=== PATIENT | female | born 1935 | race Caucasian/White ===

== ENCOUNTER → 2016-08-12 | Outpatient (CLI) | payer MEDICARE, OTHER ==
--- NOTE | 2016-08-12 10:04 | RAD ---
EXAM DESCRIPTION: Pelvis CLINICAL HISTORY: 81 years Female, PAIN IN LEFT HIP COMPARISON: None. FINDINGS: The bony pelvis is intact with an normal appearance of the SI joints and the visualized sacrum. There is mild left hip degenerative arthropathy and marginal osteophyte formation with slightly greater narrowing of the right hip joint particularly superomedially in the weightbearing portion. No fracture or dislocation is seen in the bones are mildly osteopenic. IMPRESSION: Mild degenerative changes of the hip, right worse than left. Electronically signed by: Osmel Persaud MD 08/12/2016 10:04 AM CDT
--- NOTE | 2016-08-12 10:04 | RAD ---
EXAM DESCRIPTION: Knee,Left Complete CLINICAL HISTORY: 81 years, Female, PAIN IN LEFT KNEE COMPARISON: None TECHNIQUE: Four views of the left knee FINDINGS: Severe degenerative changes with mild valgus deformity and marked joint space narrowing of the lateral compartment with [id number] appearance and subchondral sclerosis and marginal osteophytes is apparent with much less involvement of the medial joint compartment. Moderate patellofemoral degenerative arthropathy and small joint effusion is present. No fracture or dislocation or destructive process is seen. IMPRESSION: 1. Advanced degenerative changes, particularly involving the lateral joint compartment with small joint effusion and mild valgus deformity of the knee Electronically signed by: Osmel Persaud MD 08/12/2016 10:03 AM CDT
--- NOTE | 2016-08-12 10:07 | RAD ---
EXAM DESCRIPTION: Knee,Right Complete CLINICAL HISTORY: 81 years, Female, PAIN IN RIGHT KNEE COMPARISON: None TECHNIQUE: Four views of the right knee FINDINGS: Severe degenerative changes of the right knee, predominantly involving the lateral joint compartment with [id number]-qt-[id number] appearance and subchondral sclerosis and marginal osteophyte formation with much less involvement of the medial joint compartment and mild changes involving the patellofemoral articulation. A small joint effusion is suggested superiorly. The patella is abnormal with very subtle linear lucency evident on the lateral view and evident on the AP view through the distal femur consistent with an incomplete or nondisplaced patellar fracture. This appearance is not apparent on the opposite left knee. Fracture line on the lateral view involves the posterior articular surface just above the midpoint of the patella but does not appear to course through the anterior cortex. IMPRESSION: 1. Nondisplaced patellar fracture that may represent an incomplete fracture involving the articular surface posteriorly and best seen on the lateral view. 2. Severe knee degenerative arthropathy predominantly involving the lateral joint compartment with [id number] appearance and mild valgus deformity. Electronically signed by: Osmel Persaud MD 08/12/2016 10:07 AM CDT
== END | disposition home or self-care (01) ==
LOC: RAD 09:19
PROVIDERS: ATTEND Orthopaedic Surgery
DX: M25.561 Pain in right knee (principal); M25.551 Pain in right hip; M25.562 Pain in left knee; M25.552 Pain in left hip

== ENCOUNTER → 2016-09-27 | Outpatient (CLI) | payer MEDICARE, OTHER | LOC: GMAL 14:42 | PROVIDERS: ATTEND Orthopaedic Surgery | DX: Z01.818 Encounter for other preprocedural examination (principal); R30.0 Dysuria ==

== ENCOUNTER 2016-10-13 06:01 | Inpatient (IN) | payer MEDICARE, OTHER ==
--- NOTE | 2016-10-12 08:20 | HP ---
CHIEF COMPLAINT: Right knee pain. HISTORY OF PRESENT ILLNESS: Doris is a 81-year-old female with a long history of knee pain. She has had pain in the knee that keeps her from doing activities. She has had conservative measures and has now requested operative intervention secondary to failure of those measures. After discussing the risks, benefits and alternatives to operative therapy, the patient has given informed consent. PAST SURGICAL HISTORY: None. MEDICATIONS: Please see her most recent nursing notes for a full and updated list. ALLERGIES: NO KNOWN DRUG ALLERGIES. CODE STATUS: Full code. IMMUNIZATIONS: Up to date. SOCIAL HISTORY: The patient does not smoke or use any illicit drugs. She does drink on occasion. FAMILY HISTORY: None pertinent to today's complaint. REVIEW OF SYSTEMS: Negative except as indicated in the History of Present Illness. PHYSICAL EXAMINATION: VITAL SIGNS: Blood pressure 160/82. Pulse 71. Height 5'5". Weight 145. MENTAL STATUS: The patient is awake, alert, and is able to give a good history and participate in the physical. The patient is oriented to person, place and time. SKIN: Normal tone and turgor. HEENT: Normocephalic, atraumatic. Pupils equal, round and reactive. Mucosal membranes are moist. NECK: Normal range of motion. No thyromegaly, no lymphadenopathy. CHEST: Normal respiratory excursion. CARDIAC: Regular rate and rhythm. No murmurs, rubs or gallops. MUSCULOSKELETAL: The bilateral upper extremities show full active range of motion without significant pain. Sensation is intact throughout the extremities and they are warm and well perfused. She has 5/5 strength without deformity or crepitus. The left lower extremity shows full range of motion of the hip. She has pain with range of motion of the knee and crepitus with range of motion of the knee. Sensation is intact. She does have some slight valgus deformity there. The entire extremity is warm and well perfused. Range of motion is from full extension to about 115 degrees today. The right lower extremity shows full range of motion of the hip. She has crepitus throughout her range of motion of the knee with pain diffusely. She has a slight valgus deformity. Strength is 5 /5. Sensation is intact. She has a mild to moderate effusion. She is severely tender to patellar mobilization. IMAGING: X-rays show bilateral valgus deformity. She has severe arthritis. ASSESSMENT: 1. Arthritis. PLAN: The plan at this point is for total knee arthroplasty. We have discussed the risks, benefits, and alternatives to that and the patient has given informed consent. #[id number] [facility]
[~2016-10-13 06:01] MED LIST: LACTATED RINGERS 1,000 ML ONE; SODIUM CHL 0.9% 50ML MIN-BAG+ 50 ML IVPB ONE; SODIUM CHLORIDE 0.9% 100ML 100 ML IVPB ONE; SODIUM CHLORIDE 0.9% 250ML 250 ML ONE; TRANEXAMIC ACID 1,000 MG/10 ML VIAL ONE; VANCOMYCIN HCL INJ 1,000 MG VIAL IVPB ONE; ceFAZolin SODIUM 1 GM VIAL ONE
[2016-10-13] MEDS ORDERED: ceFAZolin SODIUM 1 GM VIAL ONE ×3 (06:14→20:01)
[2016-10-13] MEDS ORDERED: TRANEXAMIC ACID 1,000 MG/10 ML VIAL IV ONE (06:33)
[2016-10-13] MEDS ORDERED: ACETAMINOPHEN IV 1000MG 100 ML ONE (06:36)
[2016-10-13] MEDS ORDERED: MORPHINE SULF *EPIDURAL* 1 MG/ML VIAL ONE (06:36)
[2016-10-13] MEDS ORDERED: fentaNYL CITRATE INJ 50 MCG/ML AMP ONE (06:36)
[2016-10-13] MEDS ORDERED: MIDAZOLAM INJ 5 MG/5 ML VIAL ONE (06:36)
[2016-10-13] MEDS ORDERED: CARBOXYMETHYLCELLULOSE 0.5% OPHTH SOL 0.4 ML UD ONE (06:36)
[2016-10-13] MEDS ORDERED: SCOPOLAMINE PATCH 1.5MG 1 EA TD ONE ×2 (06:43)
[2016-10-13] MEDS ORDERED: VANCOMYCIN HCL INJ 1,000 MG VIAL IVPB ONE ×3 (06:44→20:00)
[2016-10-13] MEDS ORDERED: MORPHINE SULFATE INJ 10 MG/ML VIAL IM PRN (06:52)
[2016-10-13] MEDS ORDERED: TRANEXAMIC ACID INJ 1,000 MG in SODIUM CHLORIDE 0.9% 100ML 100 ML IVPB ONE (06:52)
[2016-10-13] MEDS ORDERED: CYCLOBENZAPRINE HCL 10 MG TAB PO PRN (06:52)
[2016-10-13] MEDS ORDERED: ONDANSETRON INJ 4 MG/2 ML VIAL IV PRN (06:52)
[2016-10-13] MEDS ORDERED: NALOXONE HCL INJ 0.4 MG/ML VIAL IV PRN (06:52)
[2016-10-13] MEDS ORDERED: MORPHINE SULFATE INJ 10 MG/ML VIAL IV PRN (06:52)
[2016-10-13] MEDS ORDERED: BENZOCAINE-MENTH LOZ (CEPACOL) 1 EA LOZ MT PRN (06:52)
[2016-10-13] MEDS ORDERED: MAGNESIUM HYDROXIDE 30 ML UD PO PRN (06:52)
[2016-10-13] MEDS ORDERED: SODIUM CHLORIDE 0.9% (FLUSH) 10 ML SYG IV PRN (06:52)
[2016-10-13] MEDS ORDERED: DEX 5% W/NACL 0.45% 1000ML 1,000 ML IVS PRN (06:52)
[2016-10-13] MEDS ORDERED: PROMETHAZINE HCL INJ 25 MG in SODIUM CHLORIDE 0.9% 50ML 50 ML IVPB PRN (06:52)
[2016-10-13] MEDS ORDERED: BISACODYL SUPPOSITORY 10 MG PR PRN (06:52)
[2016-10-13] MEDS ORDERED: ACETAMINOPHEN 325 MG TAB PO PRN (06:52)
[2016-10-13] MEDS ORDERED: PROMETHAZINE HCL INJ 12.5 MG in SODIUM CHLORIDE 0.9% 50ML 50 ML IVPB PRN (06:52)
[2016-10-13] MEDS ORDERED: ALUMINUM & MAGNESIUM HYDROXIDE 30 ML UD PO PRN (06:52)
[2016-10-13] MEDS ORDERED: TEMAZEPAM 15 MG CAP PO PRN (06:52)
[2016-10-13] MEDS ORDERED: ACETAMINOPHEN 500 MG TAB PO PRN (06:52)
[2016-10-13] MEDS ORDERED: ZOLPIDEM TARTRATE 5 MG TAB PO PRN (06:52)
[2016-10-13] MEDS ORDERED: MORPHINE PCA 1 MG/ML 100ML 1 BAG in PREMIX BAG 1 BAG IVPB SCH (07:00)
[2016-10-13] MEDS: ceFAZolin SODIUM 1 GM VIAL ONE ×2 (07:42→08:31)
[2016-10-13] MEDS: BUPIVACAINE 0.25% W/EPI 50 ML VIAL INJ ONE ×2 (07:42→09:06)
[2016-10-13] MEDS: VANCOMYCIN HCL INJ 1,000 MG VIAL IVPB ONE ×4 (07:43→08:31)
[2016-10-13] MEDS ORDERED: MORPHINE PCA 1 MG/ML 100 ML BAG IVPB ONE ×2 (09:01→09:20)
--- NOTE | 2016-10-13 09:38 | OP ---
DATE OF PROCEDURE: 10/13/16 PREOPERATIVE DIAGNOSIS: 1. Severe osteoarthritis of the right knee. POSTOPERATIVE DIAGNOSIS: 1. Severe osteoarthritis of the right knee. PROCEDURE: 1. Right total knee arthroplasty. SURGEON: Charlie Rushing MD. COOK JELLY: Levi Harmon CST, SA-C. ANESTHESIA: General. COMPLICATIONS: None. FINDINGS: Severe osteoarthritis of the knee. PROCEDURE: The patient was brought to the Operating Room and placed in supine position. General anesthesia was induced and the patient's leg was sterilely prepped and draped. Following prepping and draping, the distal femur was exposed and using an intramedullary guide, the distal femoral cut was made. The appropriate sized cutting block was measured, pinned into place, and the anterior, posterior, and chamfer cuts were made. The ACL was transected and the tibia was subluxed. Both the medial and lateral menisci were removed. An intramedullary guide was used to make the proximal tibial cut. The appropriate sized base plate was placed and a trial polyethylene was placed. The trial femur was placed, the knee was reduced, and the knee was taken through a range of motion. The knee was stable in anterior, posterior, varus and valgus stress. The patella tracked anatomically without evidence of subluxation or dislocation. After trialing, the trial components were removed and the bony surfaces were thoroughly irrigated with saline. Following irrigation, the surfaces were dried and the final components were cemented into place. The excess cement was removed and the remaining cement was allowed to cure. The knee was again taken through a range of motion to confirm stability. The wound was then irrigated with saline and closure was performed using PDS to approximate the arthrotomy followed by closure of the subcutaneous tissues with a combination of running and interrupted Monocryl sutures. Sterile dressing was placed. The patient was awoken from anesthesia and taken to Recovery. POSTOPERATIVE INSTRUCTIONS: The patient will be weight-bearing as tolerated on postoperative day 1. COMPONENTS: Coby Triathlon knee, size 4 femur, size 3 tibia, 13 mm insert. #[id number] [facility]
[2016-10-13] MEDS ORDERED: DEXAMETHASONE INJ 10 MG/ML VIAL IV ONE (10:00)
[2016-10-13] MEDS ORDERED: ePHEDrine SULF 50 MG/ML IV ONE (10:00)
[2016-10-13] MEDS ORDERED: LIDOCAINE 1% 10 ML VIAL INJ ONE (10:00)
[2016-10-13] MEDS ORDERED: PROPOFOL 200 MG/20 ML VIAL IV ONE (10:00)
[2016-10-13] MEDS ORDERED: raNITIdine HCL INJ 25 MG/ML VIAL IV ONE (10:00)
[2016-10-13] MEDS ORDERED: GLYCOPYRROLATE 0.2 MG/ML VIAL IV ONE (10:00)
[2016-10-13] MEDS ORDERED: SODIUM CHLORIDE 0.9% 100ML 100 ML IVPB ONE ×2 (15:34→20:00)
--- NOTE | 2016-10-13 15:43 | PN ---
DATE: 10/13/16 SUBJECTIVE: Ms. Rose is subjectively doing really well right now. She has no pain and she is doing her CPM. OBJECTIVE: She is afebrile. Vital signs are stable. Dressing is clean, dry and intact. ASSESSMENT: 1. Status post total knee arthroplasty. PLAN: The plan at this point is for her to continue on with her CPM. She will begin weightbearing as tolerated tomorrow. [facility][id number]
[2016-10-13] MEDS: ceFAZolin SODIUM 2 GM in SODIUM CHLORIDE 0.9% 100ML 100 ML IVPB SCH (15:53)
[2016-10-13] MEDS: MAGNESIUM OXIDE 400 MG TAB PO SCH (15:53)
--- NOTE | 2016-10-13 18:00 | CONS ---
SUPERVISING PHYSICIAN: Osmel Doyle M.D. HISTORY OF PRESENT ILLNESS: Ms. Rose is a 81 year-old female that has a longstanding history of knee pain on the right side. The pain has been increasing and worsening such that it has been preventing her from doing her normal activities. She has had multiple conservative treatment measures in the outpatient setting, but failed to respond to a degree that allows her to return to her normal activities and such she requested operative intervention to perform by Dr. Charlie Rushing. The patient had a right total knee arthroplasty today and was seen immediately postoperative state. She was alert and oriented , and in stable condition with good pain control. PAST MEDICAL HISTORY: 1. Distal left. radius fracture in August 2016 2. Right knee pain. PAST SURGICAL HISTORY: 1. Bladder suspension. 2. Total abdominal hysterectomy and bilateral salpingo-oophorectomy in 1983. 3. Left foot hammertoe repair in 2007. HOME MEDICATIONS: 1. [place] fatty acids 2400 mg daily. 2. Vitamin D 2,000 units daily. ALLERGIES: PENICILLINS. FAMILY HISTORY: Father at age 65 due to stomach cancer. Mother at age 40 secondary to melanoma. SOCIAL HISTORY: The patient is , and then remarried. She has never smoked. She uses alcohol frequently but not every day and typically consumes wine. She denies any other illicit drug use. She lives in [place], [place]. REVIEW OF SYSTEMS: Negative except for as noted in the History of Present Illness. PHYSICAL EXAMINATION: VITAL SIGNS: Temperature 97.5, pulse 72, blood pressure 118/74, respirations 12 , satting 96% on room air. Weight 71.6 kg. HEENT: Tympanic membranes are clear bilaterally. Oropharynx is pink and moist without any lesions. NECK: Supple, non-tender with full range of motion. No jugular venous distention. CHEST: Clear to auscultation bilaterally without any rhonchi, wheezing or rales. HEART: Regular rate and rhythm without appreciable murmurs, gallops, or rubs. ABDOMEN: Soft, non-tender with positive bowel sounds. EXTREMITIES: No clubbing, cyanosis or edema. Right knee has a bulky surgical dressing in place. Pulse distally is strong. Capillary refill is brisk. NEUROLOGIC: She is alert and oriented times three with no motor or sensory deficits noted. Cranial nerves II-XII are grossly intact. LABORATORY: Urinalysis showed to be within normal limits. ASSESSMENT: 1. Immediately postoperative day zero for an elective total right knee arthroplasty having failed to respond to outpatient treatment plan. 2. Chronic right knee pain failing to respond to conservative outpatient measures requiring surgical intervention for symptom control. PLAN: Will follow the patient as she continues to recovery and proceed through her physical therapy and rehabilitation phase postoperatively. Will encourage her to continue with deep breathing exercises to prevent postoperative complications. Will ensure she is on DVT prophylaxis as per protocol. Anticipate length of stay to be anywhere from 2 to 3 days with discharge determined by Physical Therapy and Dr. Rushing. Discharge planning is in place yet to be determined as far as outpatient continued physical therapy. Until then, will continue to monitor the patient and treat appropriately. [facility][id number] [facility]
[2016-10-13] MEDS ORDERED: SODIUM CHLORIDE 0.9% 250ML 250 ML ONE ×2 (18:01→19:59)
[2016-10-13] MEDS: VANCOMYCIN HCL INJ 1,000 MG in SODIUM CHLORIDE 0.9% 250ML 250 ML IVPB SCH (18:09)
[2016-10-13] MEDS: IV SET AND CAP CHANGE INJ INJ SCH (18:46)
--- NOTE | 2016-10-13 19:08 | PCM.CORE ---
Physician DVT/VTE - Prophylaxis Currently: Patient already on anticoagulation therapy - Nurse DVT Assessment & Total Each Risk Factor Represents 5 Points: Elective Arthtroplasty Each Risk Factor Represents 3 Points: Age over 75 years Each Risk Factor Represents 2 Points: Major Surgery >45 minutes Each Risk Factor Represents 1 Point: Medical PT at Bed Rest Each Risk Factor is 1 Point: Obesity (BMI >25) DVT Assessment Score: 12 - 5 or more Very High Risk Treatments: Early Ambulation *, Sequential Compression Device Pharmacological: Enoxaparin 30mg SQ BID
[2016-10-13] MEDS ORDERED: DOCUSATE CALCIUM 240 MG CAP ONE (19:59)
[2016-10-13] MEDS ORDERED: ENOXAPARIN SODIUM 30 MG/0.3 ML SYG SUBCU ONE (19:59)
[2016-10-13] MEDS: DOCUSATE CALCIUM 240 MG CAP PO SCH (20:41)
[2016-10-13] MEDS: ENOXAPARIN SODIUM 30 MG/0.3 ML SYG SUBCU SCH (22:39)
[2016-10-14] MEDS: ceFAZolin SODIUM 2 GM in SODIUM CHLORIDE 0.9% 100ML 100 ML IVPB SCH ×2 (00:20→08:23)
[2016-10-14] MEDS: VANCOMYCIN HCL INJ 1,000 MG in SODIUM CHLORIDE 0.9% 250ML 250 ML IVPB SCH (05:58)
[2016-10-14] MEDS ORDERED: SODIUM CHLORIDE 0.9% 100ML 100 ML IVPB ONE (07:59)
[2016-10-14] MEDS ORDERED: CHOLECALCIFEROL 2,000 IU TAB PO ONE ×2 (07:59→08:35)
[2016-10-14] MEDS ORDERED: ceFAZolin SODIUM 1 GM VIAL ONE (08:00)
--- NOTE | 2016-10-14 08:17 | RAD ---
EXAM DESCRIPTION: Knee,Right 2 or More Views CLINICAL HISTORY: 81 years, Female, TKA COMPARISON: None TECHNIQUE: Two views of the right knee FINDINGS: Two views of the right knee demonstrate total knee replacement with metallic radiopaque femoral and tibial components well applied to the underlying bone with satisfactory alignment. I do not clearly visualize a lucent patellar articular surface applied. Subcutaneous and intra-articular air from the operative procedure is noted. IMPRESSION: 1. Satisfactory right total knee replacement. Electronically signed by: Osmel Persaud MD 10/14/2016 8:15 AM CDT
[2016-10-14] MEDS: MAGNESIUM OXIDE 400 MG TAB PO SCH (08:24)
[2016-10-14] MEDS: FISH OIL 1,200 MG CAP PO SCH (08:24)
[2016-10-14] MEDS: CHOLECALCIFEROL 2,000 IU TAB PO SCH (09:05)
[2016-10-14] MEDS: ENOXAPARIN SODIUM 30 MG/0.3 ML SYG SUBCU SCH ×2 (11:50→23:31)
--- NOTE | 2016-10-14 14:35 | PN ---
SUPERVISING PHYSICIAN: Osmel Doyle MD DATE: 10/14/16 SUBJECTIVE: The patient is starting her physical therapy. Her pain is being well controlled. She has had no nausea, no fever. OBJECTIVE: VITAL SIGNS: Temperature 98.6. Pulse 72. Blood pressure 141/71. Respirations 17. O2 saturation 94% on 1 liter nasal cannula. I&Os show negative balance of 290 with 1440 in, 1730 out. Weight 71.6 kg. CHEST: Lungs clear to auscultation bilaterally. HEART: Regular rate and rhythm. ABDOMEN: Soft, nontender. Positive bowel sounds. EXTREMITIES: No cyanosis, clubbing or edema. Right knee still has a bulky dressing in place. Pulses distally are strong. Capillary refill is brisk. NEUROLOGIC: Alert and oriented times three. LABORATORY: Postoperative hemoglobin 10.6 and hematocrit 31.0. ASSESSMENT: 1. Postoperative day 1 for an elective total right knee arthroplasty having failed to respond to outpatient treatment plan. 2. Chronic right knee pain failing to respond to conservative measures in the outpatient setting, requiring surgical intervention for symptom control. PLAN: We will continue to follow the patient as she continues with her physical therapy and rehabilitation efforts. We will continue to work on discharge planning in regards to outpatient treatment plan and continue to monitor the patient and treat appropriately until discharge. #[id number] [facility]
[2016-10-14] MEDS: DOCUSATE CALCIUM 240 MG CAP PO SCH (20:29)
[2016-10-15] MEDS: HYDROcodone 10MG/APAP 325MG 1 EA TAB PO PRN ×2 (08:32→17:22)
[2016-10-15] MEDS: CHOLECALCIFEROL 2,000 IU TAB PO SCH (08:33)
[2016-10-15] MEDS: FISH OIL 1,200 MG CAP PO SCH (08:33)
[2016-10-15] MEDS: MAGNESIUM OXIDE 400 MG TAB PO SCH (08:33)
[2016-10-15] MEDS: SODIUM CHLORIDE 0.9% (FLUSH) 10 ML SYG IV SCH ×2 (08:34→20:22)
--- NOTE | 2016-10-15 08:55 | PN ---
DATE: 10/15/16 SUBJECTIVE: Ms. Rose is doing pretty well today. She is out of bed already and eating breakfast. OBJECTIVE: Afebrile. Vital signs stable. Wound is clean. There are no signs or symptoms of infection. ASSESSMENT: Status post total knee arthroplasty. PLAN: The plan at this point is for to continue with physical therapy and with weight-bearing as tolerated. We are going to increase her CPM as well. #[id number] [facility]
[2016-10-15] MEDS: ENOXAPARIN SODIUM 30 MG/0.3 ML SYG SUBCU SCH ×2 (12:05→23:12)
--- NOTE | 2016-10-15 14:18 | PN ---
SUPERVISING PHYSICIAN: Osmel Doyel MD DATE: 10/15/16 SUBJECTIVE: The patient is continuing to make good progress with her physical therapy efforts. She is utilizing CPM and has good pain control. She did run a low grade fever this morning. OBJECTIVE: VITAL SIGNS: T-max 100.1. Blood pressure 155/81. Respirations 20. Saturation 95% on room air. I&Os show negative balance of 225 with 600 in , 825 out. Weight 71.6 kg. CHEST: Lungs clear to auscultation bilaterally. HEART: Regular rate and rhythm. ABDOMEN: Soft, nontender. Positive bowel sounds. EXTREMITIES: Right knee remains with dressing in pace. Iceman is in place at time of exam. Distal pulses are strong. Capillary refill is brisk. NEUROLOGIC: Alert and oriented times three. ASSESSMENT: 1. Postoperative day 2 from elective right total knee arthroplasty having failed to respond to outpatient treatment plan. Surgery performed by Dr. Charlie Rushing. 2. Chronic right knee pain, failing to respond to conservative measures in the outpatient setting, requiring surgical intervention for symptom control. PLAN: We will continue to follow the patient as she progress through her physical therapy efforts. Anticipation of discharge on Tuesday as at that point the patient will have assistance at home to ensure she is safe once she is discharged home. Until then, we will continue to monitor the patient closely and treat appropriately. #[id number] [facility]
[2016-10-15] MEDS: DOCUSATE CALCIUM 240 MG CAP PO SCH (20:22)
[2016-10-16] MEDS: HYDROcodone 5MG/APAP 325MG 1 EA TAB PO PRN ×2 (01:04→12:39)
[2016-10-16] MEDS: FISH OIL 1,200 MG CAP PO SCH (09:20)
[2016-10-16] MEDS: MAGNESIUM OXIDE 400 MG TAB PO SCH (09:20)
[2016-10-16] MEDS: ENOXAPARIN SODIUM 30 MG/0.3 ML SYG SUBCU SCH (09:20)
[2016-10-16] MEDS: SODIUM CHLORIDE 0.9% (FLUSH) 10 ML SYG IV SCH (09:21)
[2016-10-16] MEDS: CHOLECALCIFEROL 2,000 IU TAB PO SCH (09:21)
[2016-10-16] MEDS: IV SET AND CAP CHANGE INJ INJ SCH (09:22)
--- NOTE | 2016-10-16 13:08 | PN ---
DATE: 10/16/16 SUBJECTIVE: Doris is subjectively doing very well. She is able to get out of the bed on her own without significant difficulty. OBJECTIVE: She is afebrile. Vital signs are stable. Wound is clean. There are no signs or symptoms of infection. ASSESSMENT: 1. Status post total knee arthroplasty. PLAN: The plan at this point is for her to be discharged either today or tomorrow morning. She does have family members at home. At this point, she is going to be doing outpatient physical therapy starting Tuesday at 2:30. She has been instructed to get in touch should any concerns or change in her condition occur. [facility][id number] [facility]
[2016-10-16] MEDS ORDERED: RIVAROXABAN 10 MG TAB PO ONE (13:40)
[2016-10-16 13:57] VITALS: BP 110/66; TEMP 98.7; O2SAT 97
[2016-10-16] MEDS ORDERED: BISACODYL SUPPOSITORY 10 MG PR ONE (21:00)
[2016-10-16] MEDS ORDERED: MAGNESIUM HYDROXIDE 30 ML UD PO ONE (21:00)
[2016-10-17] MEDS ORDERED: RIVAROXABAN 10 MG TAB PO ONE (09:00)
--- NOTE | 2016-10-31 20:18 | DS ---
SUPERVISING PHYSICIAN: Osmel Doyle M.D. DISCHARGE DIAGNOSIS: 1. Postoperative day 3 for elective right total knee arthroplasty having failed to respond to outpatient treatment plan requiring surgical intervention by Dr. Charlie Rushing. 2. Chronic right knee pain, failing to respond to conservative measures requiring surgical intervention as noted in #1. HISTORY OF PRESENT ILLNESS: Ms. Rose is a 81-year-old female patient that had a longstanding history of knee pain on the right side. The pain had been increasingly worsening such that she was prevented from doing any of her normal activities. She had multiple conservative treatment measures in the outpatient setting but failed to respond to any degree that allowed her to return to normal activities. She requested operative intervention that was performed by Dr. Charlie Rushing. The patient had a total knee arthroplasty on date of admission and was followed postoperatively. LABORATORY: Postoperative H&H was 10.6 and 31.0. HOSPITAL COURSE: Ms. Rose is a 81 year-old female patient as noted above for admission for a total right knee arthroplasty. She was followed postoperatively. She progressed well through her physical therapy efforts. She remained clinically stable and was felt well enough to be discharged to continue with outpatient treatment plan. PLAN: Ms. Rose was discharged on 10/16/16 with instructions to followup with Dr. Charlie Rushing as scheduled. She is to resume her home medications as instructed and start new prescriptions as directed. She [facility] to [facility]. She was to call Dr. Rushing if she had any concerning signs or symptoms or failure to improve. At discharge , new prescriptions included: 1. Flexeril 10 mg every 8 hours as needed for muscle spasms, #15. 2. Hydrocodone 5/325 one every 4 hours as needed provided by Dr. Rushing. 3. Xarelto 10 mg daily for 9 days. Diet at discharge is regular diet as tolerated. Activity is as per Physical Therapy. Condition at discharge was stable and improved. #[id number] [facility]
== END 2016-10-16 15:15 | disposition home or self-care (01) | DRG 470 ==
LOC: AMB 06:01 → MS 11:29 → AMB 11:29
PROVIDERS: ADMIT Orthopaedic Surgery; ATTEND Nurse Practitioner Family
PROC: 0SRC0J9 Replacement of Right Knee Joint with Synthetic Substitute, Cemented, Open Approach (ICD-10-PCS; principal; 2016-10-13 06:59)
DX: M17.11 Unilateral primary osteoarthritis, right knee (principal); Z88.0 Allergy status to penicillin

== ENCOUNTER → 2016-12-30 | Outpatient (CLI) | payer MEDICARE, OTHER | END | disposition home or self-care (01) | LOC: GMAL 10:23 | PROVIDERS: ATTEND Family Medicine | DX: D51.3 Other dietary vitamin B12 deficiency anemia (principal); R53.82 Chronic fatigue, unspecified; E55.9 Vitamin D deficiency, unspecified ==

== ENCOUNTER → 2017-01-10 | Outpatient (CLI) | payer MEDICARE, OTHER | END | disposition home or self-care (01) | LOC: RESP 10:38 | PROVIDERS: ATTEND Orthopaedic Surgery | DX: Z01.818 Encounter for other preprocedural examination (principal) ==

== ENCOUNTER → 2017-01-18 | Outpatient (CLI) | payer MEDICARE, OTHER | END | disposition home or self-care (01) | LOC: GMAL 15:02 | PROVIDERS: ATTEND Family Medicine | DX: R30.0 Dysuria (principal) ==

== ENCOUNTER 2017-01-26 06:03 | Inpatient (IN) | payer MEDICARE, OTHER ==
--- NOTE | 2017-01-24 17:55 | HP ---
CHIEF COMPLAINT: Left knee pain. HISTORY OF PRESENT ILLNESS: Ms. Rose is a 81 year-old female with a history of severe knee pain that has been going on for years and getting progressively worse. She has had multiple injections into both knees. Those injections did not help either knee and she has had now left total knee replacement. Because of the ongoing pain, she has requested operative intervention. After discussing the risks, benefits, and alternatives to that, she has given informed consent for that. PAST SURGICAL HISTORY: 1. Right total knee replacement. CURRENT MEDICATIONS: 1. Azithromycin. 2. Ciprofloxacin. 3. Doxycycline. 4. Hydrocodone. 5. Methylprednisolone. 6. Xarelto. ALLERGIES: NO KNOWN DRUG ALLERGIES. CODE STATUS: FULL CODE. IMMUNIZATIONS: Up to date. FAMILY HISTORY: None pertinent to today's complaints. SOCIAL HISTORY: She does not smoke or use any illicit drugs. She does drink on occasion. REVIEW OF SYSTEMS: Negative except as indicated in the History of Present Illness. PHYSICAL EXAMINATION: VITAL SIGNS: Blood pressure 152/80, pulse 76. Height 5' 5", weight 136. MENTAL STATUS: The patient is awake, alert, and is able to give a good history and participate in the physical. The patient is oriented to person, place and time. SKIN: Normal tone and turgor. HEENT: Normocephalic, atraumatic. Pupils equal, round and reactive. Mucosal membranes are moist. NECK: Normal range of motion. No thyromegaly, no lymphadenopathy. CHEST: Normal respiratory excursion. CARDIAC: Regular rate and rhythm. No murmurs, rubs or gallops. MUSCULOSKELETAL: Bilateral upper extremities show full active range of motion. She has intact sensation. They are warm and well perfused. She has no deformity and no crepitus with range of motion. Strength is 5/5. The right knee shows a well-healed wound anteriorly. She has full range of motion in the hip. Extension is full with flexion to about 125 degrees. She has intact sensation. Strength is 5/5. It is warm and well perfused. The left lower extremity shows full range of motion in the hip. Range of motion in the knee is full extension to about 120 degrees of flexion. She does have a valgus deformity. She has slight laxity with varus testing. She has intact sensation. Strength is 5/5. She does walk with a slight antalgic gait. X-RAYS: X-rays show severe arthritis with valgus deformity. ASSESSMENT: 1. Arthritis. PLAN: The plan at this point is for total knee arthroplasty. We have discussed the risks, benefits, and alternatives to that and she has given informed consent for that. [facility][id number] [facility]
[~2017-01-26 06:03] MED LIST changes: -LACTATED RINGERS 1,000 ML ONE
[2017-01-26] MEDS ORDERED: ceFAZolin SODIUM 1 GM VIAL ONE ×2 (06:18→16:32)
[2017-01-26] MEDS ORDERED: MORPHINE SULFATE *EPIDURAL* 0.5 MG/ML VIAL ONE (06:31)
[2017-01-26] MEDS ORDERED: MIDAZOLAM INJ 2 MG/2 ML VIAL ONE (06:31)
[2017-01-26] MEDS ORDERED: fentaNYL CITRATE INJ 50 MCG/ML AMP ONE (06:31)
[2017-01-26] MEDS ORDERED: ACETAMINOPHEN IV 1000MG 100 ML ONE (06:31)
[2017-01-26] MEDS: LACTATED RINGERS 1,000 ML ONE ×2 (06:39→10:36)
[2017-01-26] MEDS ORDERED: MORPHINE SULFATE INJ 10 MG/ML VIAL IV PRN (07:19)
[2017-01-26] MEDS ORDERED: traMADol HCL 50 MG TAB PO PRN (07:19)
[2017-01-26] MEDS ORDERED: ACETAMINOPHEN 500 MG TAB PO PRN (07:19)
[2017-01-26] MEDS ORDERED: MAGNESIUM HYDROXIDE 30 ML UD PO PRN (07:19)
[2017-01-26] MEDS ORDERED: NALOXONE HCL INJ 0.4 MG/ML VIAL IV PRN (07:19)
[2017-01-26] MEDS ORDERED: TRANEXAMIC ACID INJ 1,000 MG in SODIUM CHLORIDE 0.9% 100ML 100 ML IVPB ONE (07:19)
[2017-01-26] MEDS ORDERED: BENZOCAINE-MENTH LOZ (CEPACOL) 1 EA LOZ MT PRN (07:19)
[2017-01-26] MEDS ORDERED: ACETAMINOPHEN 325 MG TAB PO PRN (07:19)
[2017-01-26] MEDS ORDERED: ZOLPIDEM TARTRATE 5 MG TAB PO PRN (07:19)
[2017-01-26] MEDS ORDERED: ALUMINUM & MAGNESIUM HYDROXIDE 30 ML UD PO PRN (07:19)
[2017-01-26] MEDS ORDERED: MORPHINE SULFATE INJ 10 MG/ML VIAL IM PRN (07:19)
[2017-01-26] MEDS ORDERED: BISACODYL SUPPOSITORY 10 MG PR PRN (07:19)
[2017-01-26] MEDS ORDERED: SODIUM CHLORIDE 0.9% (FLUSH) 10 ML SYG IV PRN (07:19)
[2017-01-26] MEDS ORDERED: PROMETHAZINE HCL INJ 25 MG in SODIUM CHLORIDE 0.9% 50ML 50 ML IVPB PRN (07:19)
[2017-01-26] MEDS ORDERED: TEMAZEPAM 15 MG CAP PO PRN (07:19)
[2017-01-26] MEDS ORDERED: PROMETHAZINE HCL INJ 12.5 MG in SODIUM CHLORIDE 0.9% 50ML 50 ML IVPB PRN (07:19)
[2017-01-26] MEDS ORDERED: ONDANSETRON INJ 4 MG/2 ML VIAL IV PRN (07:19)
[2017-01-26] MEDS ORDERED: MORPHINE PCA 1 MG/ML 100ML 1 BAG in PREMIX BAG 1 BAG IVPB SCH (07:30)
[2017-01-26] MEDS: ceFAZolin SODIUM 1 GM VIAL ONE ×2 (07:48→08:35)
[2017-01-26] MEDS: VANCOMYCIN HCL INJ 1,000 MG VIAL IVPB ONE ×2 (07:49→08:35)
[2017-01-26] MEDS: BUPIVACAINE 0.5% W/EPI 30 ML VIAL INJ ONE ×2 (07:49→09:08)
[2017-01-26] MEDS ORDERED: MORPHINE PCA 1 MG/ML 100 ML BAG IVPB ONE (09:34)
--- NOTE | 2017-01-26 09:43 | OP ---
DATE OF PROCEDURE: 01/26/17 PREOPERATIVE DIAGNOSIS: 1. End-stage osteoarthritis of the left knee. POSTOPERATIVE DIAGNOSIS: 1. End-stage osteoarthritis of the left knee. PROCEDURE: 1. Left total knee arthroplasty. SURGEON: Charlie Rushing MD. CATHOLIC PRIEST: Levi Harmon CST, SA-C. ANESTHESIA: General. COMPLICATIONS: None. FINDINGS: Severe arthritis with valgus deformity. INDICATION: Ms. Rose has a long history of bilateral knee arthritis. She has had conservative measures, however, has failed to gain relief. Because of her ongoing symptoms, she has requested operative intervention. After discussing the risks, benefits and alternatives to that, the patient has given informed consent for total knee arthroplasty. PROCEDURE: The patient was brought to the Operating Room and placed in supine position. General anesthesia was induced and the patient's leg was sterilely prepped and draped. Following prepping and draping, the distal femur was exposed and using an intramedullary guide, the distal femoral cut was made. The appropriate sized cutting block was measured, pinned into place, and the anterior, posterior, and chamfer cuts were made. The ACL was transected and the tibia was subluxed. Both the medial and lateral menisci were removed. An intramedullary guide was used to make the proximal tibial cut. The appropriate sized base plate was placed and a trial polyethylene was placed. The trial femur was placed, the knee was reduced, and the knee was taken through a range of motion. The knee was stable in anterior, posterior, varus and valgus stress. The patella tracked anatomically without evidence of subluxation or dislocation. After trialing, the trial components were removed and the bony surfaces were thoroughly irrigated with saline. Following irrigation, the surfaces were dried and the final components were cemented into place. The excess cement was removed and the remaining cement was allowed to cure. The knee was again taken through a range of motion to confirm stability. The wound was then irrigated with saline and closure was performed using PDS to approximate the arthrotomy followed by closure of the subcutaneous tissues with a combination of running and interrupted Monocryl sutures. Sterile dressing was placed. The patient was awoken from anesthesia and taken to Recovery. POSTOPERATIVE INSTRUCTIONS: The patient will be weight-bearing as tolerated on postoperative day 1. COMPONENTS: [employer] Triathlon knee, size 4 femur, size 3 tibia, 11 mm insert. #[id number] [facility]
[2017-01-26] MEDS ORDERED: METOCLOPRAMIDE HCL INJ 10 MG/2 ML VIAL IV ONE (10:00)
[2017-01-26] MEDS ORDERED: PROPOFOL 200 MG/20 ML VIAL IV ONE (10:00)
[2017-01-26] MEDS ORDERED: LIDOCAINE 1% 10 ML VIAL INJ ONE (10:00)
[2017-01-26] MEDS ORDERED: ePHEDrine SULF 50 MG/ML IV ONE (10:00)
[2017-01-26] MEDS ORDERED: DEXAMETHASONE INJ 10 MG/ML VIAL IV ONE (10:00)
[2017-01-26] MEDS ORDERED: raNITIdine HCL INJ 25 MG/ML VIAL IV ONE (10:00)
[2017-01-26] MEDS: CELECOXIB 100 MG CAP PO SCH ×2 (12:13→16:40)
[2017-01-26] MEDS: IV SET AND CAP CHANGE INJ INJ SCH (12:15)
[2017-01-26] MEDS: MAGNESIUM OXIDE 400 MG TAB PO SCH (12:15)
[2017-01-26] MEDS: DEX 5% W/NACL 0.45% 1000ML 1,000 ML IVS PRN (13:01)
[2017-01-26] MEDS ORDERED: CEFAZOLIN SODIUM 2 GRAMS IV 2 GM in PREMIX BAG 1 BAG IVPB SCH (16:00)
[2017-01-26] MEDS ORDERED: ceFAZolin SODIUM 1 GM in SODIUM CHL 0.9% 50ML MIN-BAG+ 50 ML IVPB SCH (16:00)
[2017-01-26] MEDS ORDERED: SODIUM CHL 0.9% 50ML MIN-BAG+ 50 ML IVPB ONE (16:31)
[2017-01-26] MEDS ORDERED: SODIUM CHLORIDE 0.9% 250ML 250 ML ONE (17:34)
[2017-01-26] MEDS ORDERED: VANCOMYCIN HCL INJ 1,000 MG VIAL IVPB ONE (17:35)
[2017-01-26] MEDS: VANCOMYCIN HCL INJ 1,000 MG in SODIUM CHLORIDE 0.9% 250ML 250 ML IVPB SCH (17:44)
--- NOTE | 2017-01-26 20:27 | CONS ---
DATE OF CONSULTATION: 01/26/17 HISTORY OF PRESENT ILLNESS: This 81 year-old white female was admitted to the hospital earlier this morning for elective total replacement surgery of her left knee. This was performed successfully by Dr. Rushing and the patient tolerated it quite well. She has had a history of previous total right knee arthroplasty having been performed about 3 months prior to this one. She has had knee pain on the left for a number of years approaching 15 or 20 with the discomfort getting worse here recently. She has failed outpatient therapy and is requiring surgical intervention to assist with the symptom control. Otherwise the patient has been remarkably healthy. Her has recently passe away and she is now living alone. PAST MEDICAL HISTORY: 1. Arthritis. PAST SURGICAL HISTORY: 1. Total right and left knee arthroplasty. 2. Hysterectomy. 3. Bladder suspension. CURRENT MEDICATIONS: Please refer to home medicines list of verified medicines taken/. ALLERGIES: PENICILLIN. FAMILY HISTORY: Positive for diabetes mellitus, melanoma, stomach cancer and lung cancer in members of the family. 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 REVIEW OF SYSTEMS: No significant weight change, fever or chills. HEENT: Vision and hearing appear to be within normal limits. LUNGS: No significant shortness of breath, cough or sputum production or hemoptysis. CARDIOVASCULAR: No significant chest pains or palpitations. GASTROINTESTINAL: No nausea, vomiting, diarrhea or blood in the stools. GENITOURINARY: No dysuria. MUSCULOSKELETAL: Significant pain has been noted in both knees up until 3 months ago. It was worse on the right and was successfully replace and now the left is completed as a total left knee arthroplasty earlier this morning. NEUROLOGIC: No significant headaches or focal weakness. PHYSICAL EXAMINATION: VITAL SIGNS: Afebrile, pulse 82, blood pressure 126/73, pulse oximetry 99% on 3 liters and 93% on room air. Weight 64 kilos. GENERAL: The patient is awake and alert with no memory of the surgery. HEENT: Within normal limits. NECK: Supple. CHEST: Lungs are clear. HEART: Tones regular. ABDOMEN: Soft with fairly good bowel tones and in fact are hyperactive. History of constipation in the past. EXTREMITIES: The left knee is in a cooling pad and is now going to be placed on the passive range of motion machine. Discomfort is bearable at this time. NEUROLOGIC: No focal neurological deficits. LABORATORY: Please refer to preoperative laboratory results in the electronic medical record. ASSESSMENT: 1. Postoperative day zero immediate postoperative total left knee arthroplasty performed by Dr. Rushing earlier this morning. 2. Significant degenerative arthritis with worsening pain in the left knee failing to respond to outpatient therapy and requiring surgical intervention to assist with symptom control. 3. Chronic constipation. PLAN: The patient will be started on rehabilitation in an effort to get her stronger with improved confidence so that she will be able to safely return home and to continue with outpatient rehab at that time. Rehab will be under the guidance of Physical Therapy with Orthopedic Surgery. The patient is encouraged to breathe deeply and to actively contract and relax her lower extremities to assist with DVT prophylaxis. Please refer to orders. Close evaluation in the morning. #[id number] [facility]
[2017-01-26] MEDS: DOCUSATE CALCIUM 240 MG CAP PO SCH (21:12)
[2017-01-26] MEDS: ENOXAPARIN SODIUM 30 MG/0.3 ML SYG SUBCU SCH (23:06)
[2017-01-27] MEDS ORDERED: SODIUM CHLORIDE 0.9% 250ML 250 ML ONE (06:12)
[2017-01-27] MEDS ORDERED: VANCOMYCIN HCL INJ 1,000 MG VIAL IVPB ONE (06:12)
[2017-01-27] MEDS: VANCOMYCIN HCL INJ 1,000 MG in SODIUM CHLORIDE 0.9% 250ML 250 ML IVPB SCH (06:15)
[2017-01-27] MEDS: CYCLOBENZAPRINE HCL 10 MG TAB PO PRN ×2 (08:18→21:58)
[2017-01-27] MEDS: CELECOXIB 100 MG CAP PO SCH ×2 (08:18→17:53)
--- NOTE | 2017-01-27 08:58 | RAD ---
EXAM DESCRIPTION: Knee,Left 2 or More Views CLINICAL HISTORY: 81 years, Female, TKA COMPARISON: None TECHNIQUE: Two views of the left knee FINDINGS: A left total knee replacement with placement of femoral and tibial articular components with satisfactory alignment of the knee is noted. Soft tissue and intra-articular air are noted with satisfactory alignment on the two views obtained. A patellar component does not appear to been placed. IMPRESSION: 1. Satisfactory left knee replacement. Electronically signed by: Osmel Persaud MD 01/27/2017 8:57 AM [facility]
[2017-01-27] MEDS: MAGNESIUM OXIDE 400 MG TAB PO SCH (10:00)
[2017-01-27] MEDS: ENOXAPARIN SODIUM 30 MG/0.3 ML SYG SUBCU SCH ×2 (10:00→23:26)
[2017-01-27] MEDS: HYDROcodone 5MG/APAP 325MG 1 EA TAB PO PRN (14:25)
[2017-01-27] MEDS ORDERED: SODIUM CHL 0.9% 50ML MIN-BAG+ 50 ML IVPB ONE ×2 (15:10→19:14)
[2017-01-27] MEDS ORDERED: ceFAZolin SODIUM 1 GM VIAL ONE ×2 (15:11→19:15)
[2017-01-27] MEDS: ceFAZolin SODIUM 1 GM in SODIUM CHL 0.9% 50ML MIN-BAG+ 50 ML IVPB SCH ×2 (15:24→21:57)
--- NOTE | 2017-01-27 19:17 | PN ---
DATE: 01/27/17 SUBJECTIVE: The patient is now 1 day after her significant left knee arthroplasty and is sitting up in the bed. She has seemed to tolerate her increased activity today quite well. She states her discomfort level is much higher today than it was yesterday. She is up to 105 degrees by passive range of motion. Appetite is good. No shortness of breath. OBJECTIVE: See vitals. LUNGS: Clear. HEART: Tones regular. She continues with incentive spirometry. ABDOMEN: Soft. No drainage noted at the incision site on the left knee. ASSESSMENT: 1. Postoperative day #1 total left knee arthroplasty performed by Dr. Rushing. 2. Significant degenerative arthritis with worsening pain in the left knee failing to respond to outpatient therapy and requiring surgical intervention to assist with symptom control. 3. Chronic constipation. PLAN: Continue with rehabilitation. Special emphasis on good nutrition and reevaluation. She will eventually be able to continue with outpatient management and followup when clinically stable. Followup with Dr. Torres in the clinic to be scheduled at discharge. Close followup necessary. #[id number] [facility]
[2017-01-27] MEDS: DEX 5% W/NACL 0.45% 1000ML 1,000 ML IVS PRN (19:34)
[2017-01-27] MEDS: DOCUSATE CALCIUM 240 MG CAP PO SCH (20:46)
[2017-01-28] MEDS: HYDROcodone 5MG/APAP 325MG 1 EA TAB PO PRN ×2 (05:47→20:40)
--- NOTE | 2017-01-28 08:12 | PN ---
DATE: 01/27/17 SUBJECTIVE: Ms. Rose is doing well and feels that this is easier than her last total knee. OBJECTIVE: Afebrile. Vital signs stable. Wound is clean. There are no signs or symptoms infection. ASSESSMENT: Status post total knee arthroplasty. PLAN: She will continue with physical therapy. #[id number] [facility]
--- NOTE | 2017-01-28 08:18 | PN ---
DATE: 01/28/17 SUBJECTIVE: Ms. Rose is doing very well. She has no complaints. OBJECTIVE: Afebrile. Vital signs stable. Wound is clean. There are no signs or symptoms of infection. ASSESSMENT: Status post total knee arthroplasty. PLAN: She will continue with physical therapy. We will probably have to keep her for a little while given her living situation. We will continue to monitor how she does from the standpoint of her physical therapy and we will discharge her when she reaches her goals. #[id number] [facility]
[2017-01-28] MEDS: CELECOXIB 100 MG CAP PO SCH ×2 (08:43→17:42)
[2017-01-28] MEDS: SODIUM CHLORIDE 0.9% (FLUSH) 10 ML SYG IV SCH ×2 (08:54→20:41)
[2017-01-28] MEDS: MAGNESIUM OXIDE 400 MG TAB PO SCH (08:54)
[2017-01-28] MEDS: ENOXAPARIN SODIUM 30 MG/0.3 ML SYG SUBCU SCH ×2 (12:00→22:58)
[2017-01-28] MEDS: CYCLOBENZAPRINE HCL 10 MG TAB PO PRN (17:42)
--- NOTE | 2017-01-28 19:46 | PN ---
DATE: 01/28/17 SUPERVISING PHYSICIAN: Cirilo Young M.D. SUBJECTIVE: The patient just finished CPM. She has had good pain control. She has had no signs of infection. She remains without a fever. OBJECTIVE: VITAL SIGNS: Temperature 98.9, pulse 171/78, respirations 18, satting 94% on room air. I's and O's show a negative balance of 960 with 490 in , 1450 out. Weight 64.0 kg. CHEST: Clear to auscultation bilaterally. HEART: Regular rate and rhythm. ABDOMEN: Soft, non-tender. Positive bowel sounds. EXTREMITIES: No clubbing, cyanosis or edema. Dressing in place over the left knee. It is clean and dry. There are no signs of infection. There is no erythema. Minimal swelling. Distally pulses are strong. NEUROLOGIC: She is alert and oriented times three. No repeat laboratory studies are available other than a urinalysis that showed just a trace of blood, otherwise within normal limits. ASSESSMENT: 1. Postoperative day #2 total left knee arthroplasty performed by Dr. Rushing. 2. Significant degenerative arthritis with worsening pain of the left knee having failed to respond to outpatient therapy requiring surgical intervention to assist with symptom control. 3. Chronic constipation. PLAN: Will continue to follow the patient as she progresses through physical therapy rehabilitation. Will anticipate hopefully discharging Tuesday versus possible Swing Bed. Once the patient is discharged, she will like to have [facility]. Until discharge will continue to monitor and treat appropriately. Once discharged she will need close followup with Dr. Torres and Dr. Rushing as scheduled. #[id number] [facility]
[2017-01-28] MEDS: DOCUSATE CALCIUM 240 MG CAP PO SCH (20:40)
[2017-01-29] MEDS: CELECOXIB 100 MG CAP PO SCH ×2 (08:06→17:40)
[2017-01-29] MEDS: CYCLOBENZAPRINE HCL 10 MG TAB PO PRN ×3 (08:06→17:45)
[2017-01-29] MEDS: IV SET AND CAP CHANGE INJ INJ SCH (08:06)
[2017-01-29] MEDS: HYDROcodone 5MG/APAP 325MG 1 EA TAB PO PRN (08:16)
[2017-01-29] MEDS: MAGNESIUM OXIDE 400 MG TAB PO SCH (08:58)
[2017-01-29] MEDS: SODIUM CHLORIDE 0.9% (FLUSH) 10 ML SYG IV SCH ×2 (08:58→21:40)
--- NOTE | 2017-01-29 09:59 | PCM.CORE ---
Physician DVT/VTE - Nurse DVT Assessment & Total Each Risk Factor Represents 5 Points: Elective Arthtroplasty Each Risk Factor Represents 3 Points: Age over 75 years Each Risk Factor Represents 2 Points: Major Surgery >45 minutes DVT Assessment Score: 10 - 5 or more Very High Risk Treatments: Early Ambulation *, Sequential Compression Device Pharmacological: Enoxaparin 30mg SQ BID
[2017-01-29] MEDS: ENOXAPARIN SODIUM 30 MG/0.3 ML SYG SUBCU SCH ×2 (12:06→23:09)
[2017-01-29] MEDS ORDERED: MAGNESIUM HYDROXIDE 30 ML UD PO ONE (21:00)
[2017-01-29] MEDS ORDERED: BISACODYL SUPPOSITORY 10 MG PR ONE (21:00)
[2017-01-29] MEDS: DOCUSATE CALCIUM 240 MG CAP PO SCH (21:39)
--- NOTE | 2017-01-29 22:22 | PN ---
DATE: 01/29/17 SUPERVISING PHYSICIAN: Cirilo Young M.D. SUBJECTIVE: The patient is doing well. She has been afebrile. She has had good pain control. She has had no nausea or vomiting. OBJECTIVE: Temperature 98.0, pulse 88, blood pressure 157/74, respirations 17, satting 94% on room air. I's and O's show a negative balance of 149 with 1701 in, 1850 out. Weight is 64.0 kg. CHEST: Lungs are clear to auscultation. HEART: Regular rate and rhythm. ABDOMEN: Soft, non-tender. Positive bowel sounds. EXTREMITIES: Left knee had a clean dressing in place with minimal erythema. No swelling noted. Pulses distally were strong. Capillary refill is brisk. NEUROLOGIC: She is alert and oriented times three. ASSESSMENT: 1. Postoperative day #3 left total knee arthroplasty performed by Dr. Charlie Rushing. 2. Significant degenerative arthritis with worsening pain of the left knee having failed to respond to outpatient treatment plan requiring surgical intervention to assist with symptom control. 3. Chronic constipation. PLAN: Will continue to follow the patient as she progresses through her physical therapy and rehabilitation efforts. Anticipation of discharging tomorrow with either possibly going home or versus Swing Bed. The patient does have arrangements for family members to assist her at home as she does live by herself. Once discharged, if she does go home she would [facility]. Until discharge, will continue to monitor and treat appropriately. #[id number] [facility]
[2017-01-30] MEDS: HYDROcodone 5MG/APAP 325MG 1 EA TAB PO PRN (00:32)
[2017-01-30 06:52] VITALS: TEMP 98.2; O2SAT 97
[2017-01-30] MEDS: CELECOXIB 100 MG CAP PO SCH (07:53)
[2017-01-30] MEDS ORDERED: RIVAROXABAN 10 MG TAB PO ONE (08:45)
[2017-01-30] MEDS: MAGNESIUM OXIDE 400 MG TAB PO SCH (09:23)
[2017-01-30] MEDS: SODIUM CHLORIDE 0.9% (FLUSH) 10 ML SYG IV SCH (09:24)
[2017-01-30 10:26] VITALS: BP 111/71
--- NOTE | 2017-02-07 10:18 | DS ---
SUPERVISING PHYSICIAN: Cirilo Young MD DISCHARGE DIAGNOSIS: 1. Postoperative day #4, left total knee arthroplasty performed by Dr. Charlie Rushing. 2. Significant degenerative arthritis with worsening pain of the left knee having failed to respond to outpatient treatment plan requiring surgical intervention to assist with symptom control. 3. Chronic constipation. HISTORY OF PRESENT ILLNESS: Ms. Rose is a 81-year-old white female who was admitted to the hospital on the morning of 01/26/17 for elective total replacement surgery of her left knee. This was performed successfully by Dr. Rushing and the patient tolerated it quite well. She has had a history of previous total right knee arthroplasty having been performed about 3 months prior to this one. She has had knee pain on the left for a number of years approaching 15 or 20 with the discomfort getting worse here recently. She has failed outpatient therapy and is requiring surgical intervention to assist with the symptom control. The patient was followed postoperatively until discharge. LABORATORY: Hemoglobin 10.4, hematocrit 30.2. Urinalysis showed initially on 01/26/17 with microscopic showing 5 to 10 WBCs, 1 to 3 epithelials with 1+ amorphus sediment and rare bacteria. Repeat urinalysis showed intact trace of blood on dipstick with 1+ bacteria. MICROBIOLOGY: No specimens were submitted for review. RADIOLOGY: Additional studies were not submitted. HOSPITAL COURSE: Ms. Rose was admitted as noted in history of present illness on 01/26/17 for elective surgery. She did well postoperatively and was able to participate with physical therapy to the point where she is able to discharge to continue with outpatient treatment. PLAN: Ms. Rose was discharged on 01/30/17 with instructions to followup with Dr. Rushing as scheduled on 02/11/17 at 9:30 AM. She was to have physical therapy through [facility]. She was to return to the hospital for any concerning symptoms. DIET AT DISCHARGE: Resume usual diet. ACTIVITY: Ambulate only with a walker per physical therapy, increase walking as tolerated. Wound care was as per Dr. Rushing's instructions. She can shower, but no tub baths. PRESCRIPTIONS AT DISCHARGE: 1. Flexeril 10 mg q.8h. as needed, #15. 2. [place] 5/325 1 q.4h. as needed, written by Dr. Rushing. 3. Xarelto 10 mg every day for 7 days. CONDITION AT DISCHARGE: Stable and improved. #[id number] [facility]
== END 2017-01-30 14:17 | disposition home or self-care (01) | DRG 470 ==
LOC: AMB 06:03 → MS 10:30
PROVIDERS: ADMIT Orthopaedic Surgery; ATTEND Nurse Practitioner Family
PROC: 0SRD0J9 Replacement of Left Knee Joint with Synthetic Substitute, Cemented, Open Approach (ICD-10-PCS; principal; 2017-01-26 07:05)
DX: M17.12 Unilateral primary osteoarthritis, left knee (principal); K59.09 Other constipation; Z96.651 Presence of right artificial knee joint; Z79.01 Long term (current) use of anticoagulants; Z79.891 Long term (current) use of opiate analgesic; Z88.0 Allergy status to penicillin

== ENCOUNTER → 2017-03-17 | Outpatient (CLI) | payer MEDICARE, OTHER | END | disposition home or self-care (01) | LOC: LAB.O 08:31 | PROVIDERS: ATTEND Orthopaedic Surgery | DX: N39.0 Urinary tract infection, site not specified (principal) ==

== ENCOUNTER 2017-07-14 05:40 | Day surgery (SDC) | payer MEDICARE, OTHER ==
[2017-07-14] MEDS ORDERED: TROP 1%/CYCLOPEN 1%/PHENYL 2% DROPS ONE (08:42)
[2017-07-14] MEDS ORDERED: PROPARACAINE 0.5% OPHTH SOL 15 ML BTTL ONE (12:12)
[2017-07-14] MEDS ORDERED: MIDAZOLAM INJ 2 MG/2 ML VIAL ONE (12:43)
[2017-07-14] MEDS ORDERED: TOBRAMYCIN SULF 0.3 % OPHT SOL 1 DROP RIGHT_EYE ONE ×3 (13:50→15:41)
[2017-07-14] MEDS ORDERED: PROPARACAINE 0.5% OPHTH SOL 15 ML BTTL RIGHT_EYE ONE (15:27)
[2017-07-14] MEDS ORDERED: DEXAMETHASONE 0.1% OPHTH SOL 1 DROP RIGHT_EYE ONE ×2 (15:37→15:41)
[2017-07-14] MEDS ORDERED: LIDOCAINE 1% PF 2 ML AMP INJ ONE (15:37)
[2017-07-14] MEDS ORDERED: BRIMONIDINE 0.2% OPHTH DROPS RIGHT_EYE ONE ×2 (15:38→15:41)
[2017-07-14 17:39] VITALS: BP 171/82; TEMP 98.2; O2SAT 98
== END 2017-07-14 16:23 | disposition home or self-care (01) ==
LOC: AMB 05:40
PROVIDERS: ATTEND Ophthalmology
DX: H25.11 Age-related nuclear cataract, right eye (principal); Z88.0 Allergy status to penicillin
CPT/HCPCS: 00142; 66984; J2250